=== PATIENT | female | born 1985 | race Caucasian/White ===

== ENCOUNTER 2022-10-17 02:54 | Emergency (ER) | payer OTHER, SELFPAY ==
[2022-10-17] VITALS (9 sets, daily range): BP systolic 169–211; BP diastolic 119–131; PULSE 63–82; RESP 19–28; TEMP 36.5–36.6; O2SAT 96–100
--- NOTE | 2022-10-17 03:11 | ECG_ITS ---
Measurements Intervals [place] Rate: 70 P: 40 [place]: 115 QRS: 37 QRSD: 98 T: 62 QT: 458 QTc: 496 Interpretive Statements SINUS RHYTHM WITH SHORT [place] INTERVAL INCOMPLETE RIGHT BUNDLE BRANCH BLOCK BASELINE ARTIFACT- I, II, III, AVR, AVL, AVF, V1-V6 BORDERLINE ECG NO PREVIOUS ECG AVAILABLE FOR COMPARISON Electronically Signed On 10-17-2022 6:38:12 [employer] by Edy Melgar D.O.
--- NOTE | 2022-10-17 03:11 | ED.ABDPAIN ---
HPI - Abdominal Pain General Chief Complaint: Abdominal Pain Stated Complaint: PAIN Source: patient Mode of arrival: ambulatory History of Present Illness HPI narrative: 36-year-old female, A1, status post tubal surgery after 1st presents to the ER with -- intermittent suprapubic pain since yesterday. her pain has been coming on more frequently and is stronger -- bloody vaginal discharge which started a few hours ago -- patient is on control pills and has not had a period in the last few months. The patient does not know her last LMP . -- Constipation -- Headache a few days ago. -- No blurred vision or scotomata. -- No shortness of breath. the patient has not had any nausea/ vomiting or breast heaviness in the last few months. MD elicited complaint: abdominal pain Pertinent past history: constipation Onset (ago): day(s) ( abdominal cramps started yesterday) Pain Consistency: intermittent Location: suprapubic Severity: moderate Quality: aching Radiation: none Migration to: no migration Exacerbating factors: nothing Relieving factors: nothing Associated symptoms: constipation Related Data Home Medications Medication Instructions Recorded Confirmed norgestimate 0.18 mg/0.215 mg/0.25 1 tablet PO DAILY 10/17/22 10/17/22 mg-ethinyl estradiol 25 mcg tablet ([id number]) Allergies Allergy/AdvReac Type Severity Reaction Status Date / Time Penicillins Allergy Unknown Verified 10/17/22 03:15 Review of Systems Review of Systems: All systems reviewed & are unremarkable except as noted in HPI and below Constitutional: Constitutional: Reports as per HPI and Reports no additional constitutional complaints Eyes: Eyes: Reports as per HPI and Reports no additional eye complaints ENT: Reports system reviewed and no additional complaints, except as documented and Reports as per HPI Cardiovascular: Cardiovascular: Reports as per HPI and Reports no additional cardiovascular complaints Respiratory: Respiratory: Reports as per HPI and Reports no additional respiratory complaints Gastrointestinal: Gastrointestinal: Reports as per HPI, Reports no additional gastrointestinal complaints, Reports abdominal pain and Reports constipation Genitourinary: Genitourinary: Reports no additional female genitourinary complaints, Reports as per HPI and Reports vaginal discharge Comments: Bloody mucoid vaginal discharge Musculoskeletal: Musculoskeletal: Reports no additional musculoskeletal complaints Integumentary/Breasts: Skin/Breast: Reports system reviewed and no additional complaints, except as docu and Reports as per HPI Neurologic: Reports system reviewed and no additional complaints, except as documented and Reports as per HPI Psychiatric: Psychiatric: Reports no additional psychiatric complaints Endocrine: Endocrine: Reports no additional endocrine complaints and Reports as per HPI Hematologic/Lymphatic: Hematologic/Lymphatic: Reports no additional hematologic/lymphatic complaints and Reports as per HPI Allergic/Immunologic: Allergic/Immunologic: Reports no additional allergic/immunologic complaints and Reports as per HPI [facility] Past Medical History Medical History (Updated 10/17/22 @ 04:25 by Kenny Garcia MD) Tubal Social History Social History (Updated 10/17/22 @ 03:53 by Kenny Garcia MD) Social History: history cocaine use a few weeks ago smoker drinks socially Smoking packs per day: 0.5 Smoking cigarettes per day: 10.0 Years smoked: 17 Smoking pack-years: 8.50 Smoking status: Current every day smoker Tobacco type: cigarettes Exam Narrative: hypertension with a blood pressure of 211/128 with a heart rate of 78. Const: General: ill appearing Nutritional Appearance: thin Orientation/consciousness: patient oriented x3 Limitations: no limitations HENMT: Head: normal to inspection Ears: external ears normal Face/Nose/Si
[2022-10-17] MEDS: HYDROmorphone HCL INJ (*CRX) 2 MG/ML VIAL 0.5 MG IV PUSH (03:23)
[2022-10-17] MEDS: ONDANSETRON INJ 4 MG/2 ML VIAL IV PUSH (03:23)
[2022-10-17] MEDS: LACTATED RINGERS 1,000 ML 150 ML IV CONT (03:24)
[2022-10-17] MEDS: LABETALOL HCL INJ 100 MG/20 ML VIAL 10 MG IV PUSH ×2 (03:41→03:50)
[2022-10-17 03:49] LABS: Basophils Absolute Auto 0.06 K/mm3 (0.00-0.10); Basophils Percent Auto 0.4 % (0.0-1.0); Eosinophils Absolute Auto 0.09 K/mm3 (0.02-0.50); Eosinophils Percent Auto 0.6 % (1.0-6.0); Hematocrit 41.6 % (35.0-49.0); Hemoglobin 13.7 g/dL (12.0-15.0); Immature Granulocyte Absolute 0.06 K/mm3 (0.00-0.00); Immature Granulocyte Percent A 0.4 % (0.0-0.0); Lymphocytes Absolute Auto 3.09 K/mm3 (1.10-4.50); Lymphocytes Percent Auto 21.8 % (18.0-42.0); Mean Corpuscular HGB Conc 32.9 g/dL (32.0-36.0); Mean Corpuscular Hemoglobin 27.7 pg (27.0-31.0); Mean Corpuscular Volume 84.2 fL (78.0-102.0); Monocytes Absolute Auto 0.83 K/mm3 (0.10-0.90); Monocytes Percent Auto 5.8 % (2.0-11.0); Neutrophils Absolute Auto 10.1 K/mm3 (1.7-7.2); Platelet Count Result 153 K/mm3 (150-420); Red Blood Count 4.94 M/mm3 (4.20-5.40); Red Cell Distribution Width 14.2 % (11.6-14.4); White Blood Count 14.2 K/mm3 (4.8-10.8)
[2022-10-17 03:52] LABS: Add Urine Microscopic? YES; Bilirubin Urine Negative (Negative); Blood Urine 3+ (Negative); Color Urine Light Yellow (Yellow); Glucose Urine UA Negative (Negative); Ketones Urine Negative (Negative); Leukocyte Esterase Ur Negative LEU/UL (Negative); Nitrate Urine Negative (Negative); Protein Urine 1+ (Negative); Urobilinogen Urine 0.2 mg/dL (0.2-1.0)
[2022-10-17 03:58] LABS: Appearance Urine Slightly Cloudy (Clear); Pregnancy On Board Control Positive; Squamous Epithelial Cell Urine Few /hpf (Few); Urine Pregnancy Test Positive
[2022-10-17 03:59] LABS: Amorphous Sediment Urine Few; Bacteria Urine 1+ /hpf; Mucus Urine Few /lpf
[2022-10-17] MEDS: LABETALOL HCL INJ 100 MG/20 ML VIAL 20 MG IV PUSH (04:02)
[2022-10-17 04:04] LABS: INR 0.9; Partial Thromboplastin Time 29.4 SEC (23.90-30.70); Prothrombin Time 9.5 Seconds (9.50-12.10)
--- NOTE | 2022-10-17 04:05 | PC.NURSE ---
Pt continues to have pelvic pain and lower abd contraction type pain that is sharp and stabbing. ERP Dr Garcia spoke c pt. and spouse and discussed lab results and + preg test. Call placed to OB at [facility] per protocol for emergency transfer. Pts. BP remains elevated, continuing to observe, will await call back from OB.
[2022-10-17 04:16] LABS: Alanine Aminotransferase 31 U/L (14-59); Albumin Level 2.6 g/dL (3.4-5.0); Alkaline Phosphatase 238 U/L (46-116); Anion Gap 11 mmol/L (8-16); Aspartate Amino Transferase 41 U/L (15-37); Bilirubin,Total 0.3 mg/dL (0.00-1.00); Blood Urea Nitrogen 17 mg/dL (7-18); Calcium 8.3 mg/dL (8.5-10.1); Carbon Dioxide 24 mmol/L (21-32); Chloride 101 mmol/L (98-108); Estimated CRCL calculation 75 ml/min; Estimated Glomerular Filt Rate > 60; Glucose 77 mg/dL (70-99); Lipase 96 U/L (16-77); Osmolality Calculated 282 mOsm/kg (285-295); Sodium 136 mmol/L (136-145); Total Protein 6.9 g/dL (6.4-8.2); Troponin I 10.1 ng/L (0.00-60.4)
[2022-10-17 04:17] LABS: Uric Acid 6.3 mg/dL (2.6-6.0)
--- NOTE | 2022-10-17 04:25 | PC.NURSE ---
Pt remains stable at this time, another 40 mg IVP Labetalol order obtained per OB request. Paperwork signed for transfer to [facility].
[2022-10-17] MEDS: LABETALOL HCL INJ 100 MG/20 ML VIAL 40 MG IV PUSH (04:28)
--- NOTE | 2022-10-17 04:30 | PC.NURSE ---
Pt continues to have cramping and at times worsening contractions in lower abd. that will come and go. [facility] called for pt transfer to [facility].
--- NOTE | 2022-10-17 04:51 | PC.NURSE ---
Pt loaded for transfer c [facility], report given to EMS, Pt remains stable, alert and cooperative c care. IVF LR continues to infuse per order on trsfer.
[2022-10-17 04:53] LABS: Amphetamine Screen Urine Negative (Negative); Barbiturate Screen Urine Negative (Negative); Benzodiazepines Screen Urine Negative (Negative); Cannabinoid Screen Urine Negative (Negative); Cocaine Screen Urine Negative (Negative); Methadone Screen Urine Negative (Negative); Opiate Screen Urine Negative (Negative); Phencyclidine Screen Urine Negative (Negative)
== END 2022-10-17 04:52 | disposition short-term general hospital (02) ==
PROVIDERS: Emergency Provider Internal Medicine Critical Care Medicine; PCP Family Medicine
DX: O16.9 Unspecified maternal hypertension, unspecified trimester (principal); I16.0 Hypertensive urgency; O26.899 Other specified pregnancy related conditions, unspecified trimester; R10.30 Lower abdominal pain, unspecified; O99.330 Smoking (tobacco) complicating pregnancy, unspecified trimester; F17.210 Nicotine dependence, cigarettes, uncomplicated; Z3A.00 Weeks of gestation of pregnancy not specified
CPT/HCPCS: 36415; 80053; 80307; 81001; 81025; 83605; 83690; 84484; 84550; 84702; 85025; 85610; 85730; 93005; 96361; 96374; 96375; 99285; J1170; J2405; J7120